=== PATIENT | female | born 1955 | race Caucasian/White ===

== ENCOUNTER 2023-11-03 15:15 | Emergency (ER) | payer MEDICARE, OTHER, SELFPAY ==
[2023-11-03 15:16] VITALS: BP 142/83
[2023-11-03 15:35] LABS: % Basophils 0.3 % (0-2); % Eosinophils 2.2 % (0-6); % Immature Granulocytes 0.1 % (0-0.5); % Lymphocytes 33.2 % (20.5-51.1); % Monocytes 5.8 % (1.7-9.3); % Neutrophils 58.4 % (42.2-75.2); Absolute Eosinophils 0.2 10^3/uL (0-0.7); Absolute Lymphocytes 2.3 10^3/uL (1.2-3.4); Absolute Monocytes 0.4 10^3/uL (0.1-0.6); Hematocrit 40.5 % (37.0-47.0); Hemoglobin 14.3 g/dL (12.0-16.0); Mean Corp Hgb Conc. 35.3 g/dL (33.0-37.0); Mean Corpuscular Hgb 30.6 pg (27.0-31.0); Mean Corpuscular Volume 86.7 fL (81.0-99.0); Mean Platelet Volume 9.5 fL (7.4-10.4); Nucleated Red Blood Cells % 0 %; Platelet Count 254 10^3/uL (130-400); Red Blood Cell Count 4.67 10^6/uL (4.20-5.40); Red Cell Dist. Width 12.8 % (11.5-14.5); White Blood Cell Count 6.8 10^3/uL (4.8-10.8)
[2023-11-03 15:45] LABS: ALT (SGPT) 14 U/L (0-35); AST (SGOT) 24 U/L (14-36); Albumin 4.5 g/dl (3.5-5.0); Alkaline Phosphatase 73 U/L (38-126); Blood Urea Nitrogen 18 mg/dl (7-17); Calcium 10.2 mg/dl (8.4-10.2); Carbon Dioxide 25 mmol/L (22-30); Chloride 108 mmol/L (98-107); Glucose 102 mg/dl (70-99); Lipase 112 U/L (23-300); Potassium 3.8 mmol/L (3.5-5.1); Sodium 140 mmol/L (135-145); Total Bilirubin 0.7 mg/dl (0.2-1.3); Total Protein 7.6 g/dl (6.3-8.2); eGFR > 60.00
--- NOTE | 2023-11-03 18:01 | ED.GENMED ---
History of Present Illness
General
Chief Complaint: Abdominal Pain
Source: patient
Time Seen by Provider: 11/03/23 17:34
Travel History
Have you had any contact with someone who has COVID-19?: No
Do you have any symptoms of coronavirus? Fever > 100 degrees, chills, cough, shortness of breath, sore throat, loss of taste or smell, muscle aches, or headache?: No
History of Present Illness
History of Present Illness:
68-year-old female with no significant past medical history presenting emergency department for evaluation of right lower quadrant/right mid abdominal pain that has been ongoing for 2 months intermittently but over the last couple of days pain has
been much more persistent/constant and associated with nausea. Patient went to local urgent care and had a urine test done which showed small microscopic hematuria and patient was advised to come to the ER for further evaluation she has not
attempted any medications for relief. Denies any fevers, chills, rigors, bowel changes or urinary symptom. Denies any history of similar other than she states the pain had been equivalent to when she would ovulate and her menstrual cycle but that
now the pain is a little bit more sharp in nature.
Past History
Past History
ED Past Medical History: None
ED Past Surgical History: None
Social History
Tobacco: Former smoker
Alcohol: Other (8 to 12 ounces of wine)
Drug: None
Personal:
Living: alone
Review of Systems
Review of Systems
All Other Systems: ROS reviewed and negative except as documented in HPI and ROS
Phy Exam
Physical Exam
Physical Exam:
GENERAL: Alert , in no apparent distress
EYE: clear conjunctiva b/l
HEAD: NCAT
ENT: mmm.
ABDOMEN: Soft, normoactive bowel sounds without focal tenderness, no r/g, no cvat, negative Sanders sign, no tenderness at McBurney's point
NEUROLOGICAL: Alert and oriented
SKIN: Warm and dry, skin intact.
MUSCULOSKELETAL: well perfused.
PSYCH: Normal and appropriate interaction.
Scores
Heart Failure Risk
Heart Failure Risk Score: Not Applicable
Heart Score for Chest Pain Patients
STEMI patient?: Not applicable
Withdrawal Assessment of Alcohol
Withdrawal Assessment Completed?: Not applicable
Course
Orders/Labs/Results
Orders:
Orders
11/03/23 15:26
Complete Blood Count/With Diff Urgent
Comprehensive Metabolic Panel Urgent
Lipase Urgent
11/03/23 17:56
CT Abd/pelvis W Iv Cont Urgent
Comment:
Reason For Exam: right sided abd pain x 2 months
Abnormal Lab Results
11/03/23
15:26
Chloride 108 H mmol/L
(98-107)
BUN 18 H mg/dl
(7-17)
Creatinine 0.5 L mg/dL
(0.6-1.0)
Glucose 102 H mg/dl
(70-99)
11/03/23 15:26
11/03/23 15:26
Vital Signs
Initial and Last Documented VS:
Initial Vital Signs
Temp Pulse Resp BP Pulse Ox
98.3 F 80 16 142/83 96
11/03/23 15:16 11/03/23 15:16 11/03/23 15:16 11/03/23 15:16 11/03/23 15:16
Last Documented Vital Signs
Temp Pulse Resp BP Pulse Ox
98.1 F 80 16 122/77 97
11/03/23 19:05 11/03/23 15:16 11/03/23 15:16 11/03/23 20:00 11/03/23 20:30
MDM/Problems Addressed
Differential Diagnosis Includes:
Kidney stone, appendicitis, cholecystitis, IBS/inflammatory bowel disease
MDM/Problems Addressed:
68-year-old female presenting to the emergency department for evaluation of right-sided lower abdominal pain/mid abdominal pain has been ongoing for 2 months. Symptoms over the last couple of days were more persistent which is why patient decided
to go to the urgent care for further evaluation. Patient had some microscopic hematuria. She is declining anything for pain or nausea at this time. Her exam is otherwise reassuring. Labs were ordered in triage and are also unremarkable. CT
pending
*Radiology
Radiology exam reviewed: radiology read reviewed
*Pulse Oximetry
Patient hypoxic: no
*Critical Care Note
Total Time (30-74mins, 75-104mins- exclusive of procedures): Not Applicable
Patient Management
Escalation/DeEscalation of care consider admission/obs:
CT without any acute pathology. Patient encouraged to follow-up with primary care provider as an outpatient. Aware of return precautions to ER but otherwise stable for discharge home.
ED Attending Note
-
Portions of this chart may have been created with voice recognition software.� Occasional wrong word or��sound alike� substitutions may have occurred due to the inherent limitations of voice recognition software.
Discharge Plan
Departure
Patient Disposition: Home (Routine Discharge)
Date of Disposition: 11/03/23
Time of Disposition: 20:20
Patient with high blood pressure during this ER visit?: No
Discharge Problem:
Abdominal pain
Instructions: Abdominal Pain
Referrals:
Anh Garcia CRNP [Family Provider] -
Interventions
Interventions:
*Risk Screen - Suicide Last Done: 11/03/23 18:22
*General Assessment Last Done: 11/03/23 18:22
*Neglect/Abuse Screening Last Done: 11/03/23 18:22
ED- Fall Risk Assessment Last Done: 11/03/23 20:02
*ED COVID-19 Vaccine History Last Done: 11/03/23 18:22
*Nursing Disposition Last Done: 11/03/23 21:11
BK-[id number] Assessment Last Done: 11/03/23 20:02
Discharge Date and Time
Discharge Date/Time: 11/03/23 21:12
Print Language: GREEK
[2023-11-03 18:24] VITALS: BP 138/78
[2023-11-03 19:00] VITALS: BP 115/60
[2023-11-03 19:56] VITALS: BP 132/88
[2023-11-03 20:00] VITALS: BP 122/77
== END 2023-11-03 21:12 | disposition home or self-care (01) ==
LOC: EMR 15:15
PROVIDERS: Emergency Medicine; EMERGENCY PHYSICIAN Emergency Medicine; FAMILY PHYSICIAN Nurse Practitioner
DX: R10.31 Right lower quadrant pain (principal)
CPT/HCPCS: 99284; 74177; 80053; 83690; 85025; Q9967